=== PATIENT | female | born 1955 | race Caucasian/White ===

== ENCOUNTER 2024-03-01 10:09 | Day surgery (SDC) | payer MEDICARE, SELFPAY ==
[2024-03-01] MEDS: MethylPREDNISolone Acetate 80 MG/ML Vial (08:39)
[2024-03-01 10:48] VITALS: BP 147/78; PULSE 69; RESP 16; TEMP 36.6; O2SAT 98; BMI 48.9
[2024-03-01] MEDS: Lactated Ringers 1,000 ML 15 ML IV (10:53)
--- NOTE | 2024-03-01 11:00 | RAD_ITS ---
PROCEDURE: Caudal epidural steroid injection. DATE OF EXAMINATION: March 01, 2024. INDICATION: Female, 69 years old. Chronic low back pain. FLUOROSCOPY TIME (if supplied): (19.4 seconds) minutes/seconds. 17.17 mGy. One image was submitted. RAD/Fluor Guidance for Spine Inj IMPRESSION: Intraoperative imaging provided for caudal epidural steroid injection. Electronically Signed: Cachorro Morin MD at 15:26 EDT ,
[2024-03-01] MEDS: Lidocaine 1% (5 ml sdv) 5 ML Vial (11:31)
[2024-03-01] MEDS: 0.9% Normal Saline (Pres. free 10 ML Vial (11:33)
[2024-03-01 11:40] VITALS: BP 113/74; BP 147/78; PULSE 56; RESP 16; TEMP 36.9; O2SAT 93
--- NOTE | 2024-03-01 11:44 | OP.PCM_ITS ---
Report of Operation Date of Procedure: 03/01/24 Pre-Operative Diagnosis: Lumbosacral radiculopathy, lumbosacral degenerative di sc disease, lumbosacral spinal stenosis Post-Operative Diagnosis: Lumbosacral radiculopathy, lumbosacral degenerative disc disease, lumbosacral spinal stenosis Surgery/Procedure Performed:: Diagnostic/therapeutic caudal epidural steroid injection under fluoroscopic guidance Type of Anesthesia: MAC Estimated Blood Loss (mL): Minimal Description of Procedure: DESCRIPTION OF PROCEDURE: History and physical of today was reviewed. Risks and benefits of the procedure were explained. The patient understood and agreed to proceed. Informed consent was obtained. IV inserted per routine protocol. The patient was taken to the operating room and placed in the prone position with a pillow positioned underneath the abdomen. The lower back and tailbone area was prepped and draped in a sterile fashion using iodine x3. Under fluoroscopy guidance on a lateral view, the caudal space was identified. The skin and subcutaneous tissue was anesthetized with approximately 3 mL of 1% lidocaine using a 25-gauge regular needle. Under direct visualization with fluoroscopy, using a 22-gauge 3-1/2-inch spinal needle, the needle was advanced via the skin through the sacral hiatus. The tip of the needle was passed through the sacrococcygeal ligament and advanced to approximately S4 area. After negative aspiration of blood or CSF, a total of 3 mL of contrast was injected to confirm correct placement of the needle as well as cephalad spread. The spread was followed to approximately L5 area. After confirmation on AP as well as lateral view and repeated negative aspiration, a total of 15 mL of preservative-free 0.125% Marcaine with 80 mg of Depo-Medrol was injected easily. The needle was then removed intact. The patient experienced no sign or symptoms of intrathecal or intravascular injection. The patient experienced no paresthesia. The procedure was completed without any apparent difficulty or any complications. The patient appeared to tolerate it well. ASSESSMENT AND PLAN: This is a 69-year-old female with lumbosacral radiculopathy, lumbosacral degenerative disc disease, lumbosacral spinal stenosis status post diagnostic/therapeutic caudal epidural steroid injection, patient will continue her current medications, patient will follow in approximately 2 weeks for reevaluation. Complications None
[2024-03-01 11:45] VITALS: BP 119/54; BP 147/78; PULSE 60; RESP 16; O2SAT 94
[2024-03-01 11:50] VITALS: BP 136/56; BP 147/78; PULSE 63; RESP 16; O2SAT 94
[2024-03-01 11:55] VITALS: BP 124/75; BP 147/78; PULSE 64; RESP 16; TEMP 36.1; O2SAT 96
[2024-03-01 12:00] VITALS: BP 147/78
== END 2024-03-01 12:23 | disposition home or self-care (01) ==
LOC: SDC 10:12 → AC 10:30
PROVIDERS: PCP Internal Medicine; Referring Provider Anesthesiology Pain Medicine; Visit Provider Anesthesiology Pain Medicine
PROC: 3E0S3BZ Introduction of Anesthetic Agent into Epidural Space, Percutaneous Approach (ICD-10-PCS; CPT 62282; principal; 2024-03-01 11:55)
DX: M51.17 Intervertebral disc disorders with radiculopathy, lumbosacral region (principal); E66.01 Morbid (severe) obesity due to excess calories; Z68.42 Body mass index [BMI] 45.0-49.9, adult; M48.07 Spinal stenosis, lumbosacral region; M48.061 Spinal stenosis, lumbar region without neurogenic claudication; Z79.899 Other long term (current) drug therapy; Z87.891 Personal history of nicotine dependence
CPT/HCPCS: 62323; 01992; 64483; 77003; J7120; J3490